=== PATIENT | female | born 1955 | race Caucasian/White ===

== ENCOUNTER 2020-10-01 10:25 | Outpatient (CLI) | payer MEDICARE, OTHER | END 2020-10-01 10:26 | disposition critical access hospital (66) | LOC: EMS 10:25 | PROVIDERS: ATTEND Surgery | DX: R42 Dizziness and giddiness (principal); R11.2 Nausea with vomiting, unspecified; R19.7 Diarrhea, unspecified | CPT/HCPCS: A0425; A0427 ==

== ENCOUNTER 2020-10-01 10:54 | Emergency (ER) | payer MEDICARE, OTHER ==
[2020-10-01] MEDS ORDERED: ONDANSETRON 4 MG/2 ML VIAL IVP STA (11:04)
[2020-10-01] MEDS ORDERED: LACTATED RINGERS 1,000 ML IV STA (11:06)
[2020-10-01 11:27] LABS: BASOPHILS % (AUTO) 0.5 %; EOSINOPHILS % (AUTO) 0.2 %; HGB - HEMOGLOBIN 14.3 g/dL (12.0-16.0); LYMPHOCYTES # (AUTO) 0.6 10^3/uL (1.5-3.5); LYMPHOCYTES % (AUTO) 7.5 %; MEAN CORPUSCULAR HEMOGLOBIN 27.9 pg (27.0-31.0); MEAN CORPUSCULAR HGB CONC 31.2 g/dL (32.0-36.0); MEAN CORPUSCULAR VOLUME 89.3 fL (81.0-99.0); MEAN PLATELET VOLUME 8.9 fL (7.9-10.8); MONOCYTES # (AUTO) 0.3 10^3/uL (0.0-1.0); MONOCYTES % (AUTO) 3.2 %; NEUTROPHILS # (AUTO) 7.5 10^3/uL (1.5-6.6); PLT - PLATELET COUNT 216 10^3/uL (130-450); RED BLOOD COUNT 5.13 10^6/uL (4.20-5.40); RED CELL DISTRIBUTION WIDTH 13.2 % (12.0-15.0); WHITE BLOOD COUNT 8.5 x10^3/uL (4.8-10.8)
[2020-10-01 11:40] LABS: ALBUMIN 3.8 g/dL (3.2-5.5); ALBUMIN/GLOBULIN RATIO 1.2 (1.0-2.2); BILIRUBIN,TOTAL 0.9 mg/dL (0.2-1.0); CALCIUM 8.7 mg/dL (8.5-10.3); CREATININE 1.1 mg/dL (0.4-1.0)
[2020-10-01] MEDS ORDERED: LACTATED RINGERS 1,000 ML IV ONE (13:10)
[2020-10-01 13:46] LABS: C. PNEUMONIAE- RESP PCR PANEL NOT DETECTED
[2020-10-01 15:25] VITALS: BP 121/71
--- NOTE | 2020-10-01 19:07 | ED Physician Documentation ---
History of Present Illness - Stated complaint Stated Complaint: DIZZY - Chief complaint Chief Complaint: Neuro - History obtained from History obtained from: Patient, EMS - Additonal information Additional information: 65-year-old woman with past medical history of high blood pressure, fatty liver presents with nausea vomiting and diarrhea x3 this a.m. associated with lightheadedness. Patient states she has been dizzy on and off for 3 months. Vomitus this morning was nonbloody nonbilious and diarrhea was nonbloody occurring at the same time as the vomiting, small volume and accidental. She de nies fevers but does have subjective body aches. Denies sick contacts or Covid exposure. Denies travel. Denies chest pain abdominal pain or urinary symptoms. Denies neurological deficits. Review of Systems Ten Systems: 10 systems reviewed and negative Constitutional: reports: Myalgias, Fatigue. denies: Fever, Chills GI: reports: Nausea, Vomiting, Diarrhea. denies: Abdominal Pain Skin: denies: Rash PD PAST MEDICAL HISTORY - Past Medical History Cardiovascular: Hypertension - Past Surgical History Past Surgical History: No - Allergies Allergies/Adverse Reactions: Allergies Allergy/AdvReac Type Severity Reaction Status Date / Time No Known Drug Allergies Allergy Verified 10/01/20 11:06 - Social History Does the pt smoke?: No Smoking Status: Never smoker Does the pt drink ETOH?: No Does the pt have substance abuse?: No PD ED PE NORMAL - Vitals Vital signs reviewed: Yes - General General: Alert and oriented X 3 - HEENT HEENT: Atraumatic, PERRL, EOMI - Neck Neck: Supple, no meningeal sign - Cardiac Cardiac: RRR - Respiratory Respiratory: No respiratory distress, Clear bilaterally - Abdomen Abdomen: Non tender, Non distended - Female Female : Deferred - Rectal Rectal: Deferred - Back Back: No CVA TTP - Derm Derm: Normal color - Extremities Extremities: No deformity - Neuro Neuro: Alert and oriented X 3 - Psych Psych: Normal mood, Normal affect Results - Vitals Vitals: Vital Signs - 24 hr 10/01/20 10/01/20 10/01/20 10:54 11:22 12:00 Temperature 36.5 C Heart Rate 66 61 62 Respiratory 18 12 12 Rate Blood Pressure 124/52 L 111/70 103/68 O2 Saturation 100 100 98 10/01/20 10/01/20 10/01/20 12:30 13:00 13:30 Temperature Heart Rate 62 62 64 Respiratory 16 12 11 L Rate Blood Pressure 107/69 111/75 117/75 O2 Saturation 100 100 100 10/01/20 14:00 Temperature Heart Rate 65 Respiratory 11 L Rate Blood Pressure 121/71 O2 Saturation 100 Oxygen O2 Source Room air - Labs Labs: Laboratory Tests 10/01/20 10/01/20 10/01/20 11:20 11:20 11:20 WBC 8.5 RBC 5.13 Hgb 14.3 Hct 45.8 MCV 89.3 MCH 27.9 MCHC 31.2 L RDW 13.2 Plt Count 216 MPV 8.9 Neut # (Auto) 7.5 H Lymph # (Auto) 0.6 L [place] # (Auto) 0.3 Eos # (Auto) 0.0 Baso # (Auto) 0.0 Absolute Nucleated RBC 0.00 Nucleated RBC % 0.0 Sodium 136 Potassium 4.0 Chloride 100 L Carbon Dioxide 23 Anion Gap 13.0 BUN 21 H Creatinine 1.1 H Estimated GFR (MDRD) 50 L Glucose 160 H Lactic Acid Calcium 8.7 Total Bilirubin 0.9 AST 24 ALT 32 Alkaline Phosphatase 70 Troponin I High Sens 2.4 Total Protein 7.0 Albumin 3.8 Globulin 3.2 Albumin/Globulin Ratio 1.2 Lipase 28 Nasal Adenovirus (PCR) Nasal B. parapertussis DNA (PCR) Nasal Coronavir 229E PCR Nasal Coronavir HKU1 PCR Nasal Coronavir NL63 PCR Nasal Coronavir OC43 PCR Nasal Enterovir/Rhinovir PCR Nasal Influenza B PCR Nasal Influenza A PCR Nasal Parainfluen 1 PCR Nasal Parainfluen 2 PCR Nasal Parainfluen 3 PCR Nasal Parainfluen 4 PCR Nasal RSV (PCR) Nasal B.pertussis DNA PCR Nasal C.pneumoniae (PCR) [place]ie Human Metapneumo PCR Nasal M.pneumoniae (PCR) Nasal SARS-CoV-2 (PCR) 10/01/20 10/01/20 10/01/20 11:20 12:38 13:36 WBC RBC Hgb Hct MCV MCH MCHC RDW Plt Count MPV Neut # (Auto) Lymph # (Auto) [place] # (Auto) Eos # (Auto) Baso # (Auto) Absolute Nucleated RBC Nucleated RBC % Sodium Potassium Chloride Carbon Dioxide Anion Gap BUN Creatinine Estimated GFR (MDRD) Glucose Lactic Acid 2.6 H 1.8 Calcium Total Bilirubin AST ALT Alkaline Phosphatase Troponin I High Sens Total Protein Albumin Globulin Albumin/Globulin Ratio Lipase Nasal Adenovirus (PCR) NOT DETECTED Nasal B. parapertussis DNA (PCR) NOT DETECTED Nasal Coronavir 229E PCR NOT DETECTED Nasal Coronavir HKU1 PCR NOT DETECTED Nasal Coronavir NL63 PCR NOT DETECTED Nasal Coronavir OC43 PCR NOT DETECTED Nasal Enterovir/Rhinovir PCR NOT DETECTED Nasal Influenza B PCR NOT DETECTED Nasal Influenza A PCR NOT DETECTED Nasal Parainfluen 1 PCR NOT DETECTED Nasal Parainfluen 2 PCR NOT DETECTED Nasal Parainfluen 3 PCR NOT DETECTED Nasal Parainfluen 4 PCR NOT DETECTED Nasal RSV (PCR) NOT DETECTED Nasal B.pertussis DNA PCR NOT DETECTED Nasal C.pneumoniae (PCR) NOT DETECTED [place] Human Metapneumo PCR NOT DETECTED Nasal M.pneumoniae (PCR) NOT DETECTED Nasal SARS-CoV-2 (PCR) NOT DETECTED PD MEDICAL DECISION MAKING - ED course Complexity details: reviewed results, re-evaluated patient, d/w patient ED course: Patient feeling better status post symptomatic care. Will DC with return precautions. Patient will follow up with her primary doctor. Departure - Departure Disposition: 01 Home, Self Care Clinical Impression: Nausea and vomiting, Diarrhea Condition: Good Instructions: ED Diarrhea Viral, ED Nausea Vomiting Comments: You were seen in the emergency department for nausea, vomiting, diarrhea and dizziness. Your EKG, blood heart testing, and other labs were normal. You did have some mild dehydration with a little bit of kidney injury, but this should improve if you drink a lot of water. Make sure you stay really well-hydrated. Your Covid test came back negative. Return to the ED for any new or worsening symptoms. Follow-up with your primary doctor this week Discharge Date/Time: 10/01/20 14:17
== END 2020-10-01 14:17 | disposition home or self-care (01) ==
LOC: ED 10:54
DX: R11.2 Nausea with vomiting, unspecified (principal); R19.7 Diarrhea, unspecified; R42 Dizziness and giddiness; E86.0 Dehydration; Z20.828 Contact with and (suspected) exposure to other viral communicable diseases; I10 Essential (primary) hypertension; K76.0 Fatty (change of) liver, not elsewhere classified
CPT/HCPCS: 80053; 83605; 83690; 84484; 85025; 87631; 93005; 96360; 96361; 99284; J7120; 0202U

== ENCOUNTER 2022-02-28 22:26 | Outpatient (CLI) | payer MEDICARE, OTHER | END 2022-02-28 22:27 | disposition critical access hospital (66) | LOC: EMS 22:26 | DX: M54.50 Low back pain, unspecified (principal); M79.605 Pain in left leg | CPT/HCPCS: A0425; A0429 ==

== ENCOUNTER 2022-02-28 22:54 | Emergency (ER) | payer MEDICARE, OTHER ==
--- NOTE | 2022-03-01 00:50 | ED Physician Documentation ---
History of Present Illness - Stated complaint Stated Complaint: LEFT HIP PAIN, RADIATES TO LEG - Chief complaint Chief Complaint: Back Pain - History obtained from History obtained from: Patient - History of Present Illness Timing: Yesterday Pain level now: 4 Radiates to: LLE Improved by: rest Worsened by: movement involving lower back - Additonal information Additional information: c/o LBP since yesterday, onset shortly after moving heavy furniture. The back pain persists today and since this morning has been radiating down LLE. Pain is distinctly worse with movement. Denies numbness, weakness, loss of bowel/bladder continence. Took advil 9 PM tonight with inadequate relief. 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 - Present Medications Home Medications: Ambulatory Orders Medication Instructions Recorded Confirmed Lisinopril [Zestril] 10 mg PO DAILY 02/28/22 02/28/22 hydroCHLOROthiazide [Hydrodiuril] 12.5 mg PO DAILY 02/28/22 02/28/22 Cyclobenzaprine [Flexeril] 10 mg PO TID PRN #20 tablet 03/01/22 Ondansetron Odt [Zofran Odt] 4 mg TL Q6H PRN #20 tablet 03/01/22 Oxycodone HCl/Acetaminophen 1 - 2 each PO Q6H PRN #20 tablet 03/01/22 [Percocet 5-325 mg Tablet] - Allergies Allergies/Adverse Reactions: Allergies Allergy/AdvReac Type Severity Reaction Status Date / Time No Known Drug Allergies Allergy Verified 02/28/22 23:03 - Social History Does the pt smoke?: No Smoking Status: Never smoker Does the pt drink ETOH?: No Does the pt have substance abuse?: No - Immunizations Immunizations are current?: Yes - POLST Patient has POLST: No PD ED PE NORMAL - Vitals Vital signs reviewed: Yes - General General: Alert and oriented X 3, Well developed/nourished, Other (appears uncomfortable at times during H+P due to pain) - Cardiac Cardiac: RRR, No murmur - Abdomen Abdomen: Soft, Non tender - Back Back: No CVA TTP, No spinal TTP, Other (slow to sit up due to this movement exacerbating the low back pain. the pain is also exacerbated with attempts to lift LLE) - Derm Derm: Normal color, No rash - Extremities Extremities: No edema - Neuro Neuro: No motor deficit (5/5 bilateral dorsi/plantar flexion) Results - Vitals Vitals: Oxygen O2 Source Room air PD MEDICAL DECISION MAKING - ED course Complexity details: re-evaluated patient, considered differential, d/w patient ED course: HPI c/w lumbar strain with sciatica. She is in NAD at rest but she is in obvious painful discomfort with movement involving lower back , such as sitting up, as well as with left leg raise. Given IM dilaudid and PO flexeril. On reevaluation, she reports adequate relief. Given take-home percocet and flexeril with prescriptions for same electronically submitted to her pharmacy of choice ([facility]). No red flags such as fever, numbness, weakness, bowel/bladder incontinence, and thus no emergent studies indicated at this time. Return precautions discussed and encouraged to follow up with primary care provider for reevaluation. I am prescribing a short course of short-acting opioid pain medication for this patient. 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 I have discussed that the opioids are for short term therapy only, and will not be refilled from the ED Departure - Departure Disposition: 01 Home, Self Care Clinical Impression: Sciatica Qualifiers: Laterality: left Qualified Code(s): M54.32 - Sciatica, left side Condition: Good Instructions: ED Sciatica Prescriptions: Cyclobenzaprine [Flexeril] 10 mg PO TID PRN #20 tablet PRN Reason: Spasms Oxycodone HCl/Acetaminophen [Percocet 5-325 mg Tablet] 1 - 2 each PO Q6H PRN #20 tablet PRN Reason: pain Ondansetron Odt [Zofran Odt] 4 mg TL Q6H PRN #20 tablet PRN Reason: Nausea / Vomiting Comments: Prescriptions for cyclobenzaprine (muscle relaxer), percocet (oxycodone/acetaminophen, which is a narcotic-strength pain medication), and ondansetron (anti-nausea medication) have all been electronically submitted to the [facility] pharmacy in [place]. Follow up with your primary care provider, next available appointment. Although no tests were indicated tonight, you might benefit from testing or other interventions such as physical therapy if your symptoms persist or are recurrent. If your symptoms worsen, you should consider returning to the emerg ency department. I am prescribing a short course of narcotic pain medication for you. These are potentially dangerous and addictive medications that should be used carefully. These medications may constipate you. Take an [id number] stool softener (docusate) twice daily with plenty of water while taking these medications. If you go 24 hours without a bowel movement, take [id number] miralax, per package instructions. Do not drink or drive while taking these medications. If you received narcotic or sedating medications while in the emergency department, do not drive for 24 hours. Store this medication in a safe, secure place and out of reach of children. It is a violation of federal law to give or sell this medication to another person or to use in a manner other than prescribed. The ED will not refill narcotic prescriptions, including prescriptions lost or stolen. To dispose of unwanted medications: 1. [facility] at [address] in [place] has a medication drop box. They accept prescription medications (in pill form) Monday through Monday 9:00 a.m. to 5:00 p.m. 2. [facility] accepts prescription medications (in pill form only) for disposal year round. Call for more information. 3. Contact the [facility] for the next [facility] sponsored prescription drug collection event. , [phone], or [phone]; Discharge Date/Time: 03/01/22 02:27
[2022-03-01] MEDS ORDERED: CYCLOBENZAPRINE 10 MG TABLET PO STA (01:17)
[2022-03-01] MEDS ORDERED: ONDANSETRON ODT 4 MG TABLET TL STA (01:17)
[2022-03-01] MEDS ORDERED: HYDROmorphone 1 MG/ML CARPUJECT IM STA (01:17)
[2022-03-01] MEDS ORDERED: oxyCODONE/ACET 5/325 Prepack 4 PO STA (01:59)
[2022-03-01] MEDS ORDERED: CYCLOBENZAPRINE 10 MG Prepack 2 PO PRN (02:00)
[2022-03-01 02:22] VITALS: BP 142/66
== END 2022-03-01 02:27 | disposition home or self-care (01) ==
LOC: EDUNIT# → ED 22:54
DX: M54.32 Sciatica, left side (principal); I10 Essential (primary) hypertension
CPT/HCPCS: 96372; 99282; 99283; A9270; J1170; Q0162